=== PATIENT | female | born 1985 | race Caucasian/White ===

== ENCOUNTER 2017-02-09 09:02 | Emergency (ER) | payer OTHER ==
[~2017-02-09] VITALS: Ht 160 cm; Wt 87.7 kg
[2017-02-09 09:47] VITALS: BP 131/82
== END 2017-02-09 10:27 | disposition home or self-care (01) ==
LOC: EMS 09:06
DX: M54.5 Low back pain (principal); G89.29 Other chronic pain; R03.0 Elevated blood-pressure reading, without diagnosis of hypertension
CPT/HCPCS: 99283

== ENCOUNTER 2018-06-09 19:21 | Emergency (ER) | payer OTHER ==
[~2018-06-09] VITALS: Ht 157.5 cm; Wt 92.3 kg
[2018-06-09] MEDS ORDERED: LEVO100 PO (19:39)
[2018-06-09 20:58] VITALS: BP 131/78
[2018-06-09] MEDS ORDERED: KETOROLAC TROMETHAMINE 30 MG/ML VIAL IM ONE (21:15)
== END 2018-06-09 21:50 | disposition home or self-care (01) ==
LOC: EMS 19:23
DX: M54.5 Low back pain (principal); M54.6 Pain in thoracic spine
CPT/HCPCS: 96372; 99283; J1885

== ENCOUNTER 2021-04-09 21:23 | Emergency (ER) | payer MEDICAID, OTHER ==
[~2021-04-09] VITALS: Ht 162.6 cm; Wt 86.4 kg
[~2021-04-09 21:23] MED LIST: LEVO100 PO
[2021-04-09] MEDS ORDERED: DiphenhydrAMINE HCL 50 MG/ML VIAL IVP STA (21:36)
[2021-04-09] MEDS ORDERED: EPINEPHrine 1:1,000 [1 MG/ML] AMP IM ONE (21:45)
[2021-04-09] MEDS ORDERED: MethylPREDNISolone SOD SUCC 125 MG/2 ML VIAL IVP ONE (21:45)
[2021-04-09] MEDS ORDERED: FAMOTIDINE 10 MG/ML 2 ML VIAL IVP ONE (21:45)
[2021-04-10] MEDS ORDERED: DiphenhydrAMINE HCL 50 MG/ML VIAL IVP STA (00:18)
[2021-04-10] MEDS ORDERED: SODIUM CHLORIDE 0.9% 1,000 ML ONE (00:22)
[2021-04-10] MEDS ORDERED: EPINEPHrine 1:1,000 [1 MG/ML] AMP IM ONE (00:30)
[2021-04-10 03:15] VITALS: BP 132/71
== END 2021-04-10 03:57 | disposition home or self-care (01) ==
LOC: EMS 21:29
DX: T78.2XXA Anaphylactic shock, unspecified, initial encounter (principal); X58.XXXA Exposure to other specified factors, initial encounter
CPT/HCPCS: 96372; 96374; 96375; 96376; 99291; J1200; J7030